=== PATIENT | male | born 1970 | race Caucasian/White ===

== ENCOUNTER 2017-09-03 09:00 | Outpatient (RCR) | payer OTHER ==
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
[~2017-09-03 09:00] MED LIST: ACET500T68 PO; ALB18R INH; ALBU1.257 IH; ALBU8.5H IH; ALBU8.5H12 IH; AZIT-17 PO; BUDE10.2 INH; CEFU500T50 PO; CETI-176 PO; CHL12L MM; CODE118S5 PO; CYCL10TA29 PO; DULO30CA35 PO; DULO60CA56 PO; FLUT1DIS28 INH; GABA-503 PO; GABA-549 PO; IBUP-56 PO; IPRA3AMP21 IH; KET10 PO; LOR5/325 PO; OXYC10TA67 PO; PRED-1 PO; PRED20TA6 PO; ROBC PO; [UNRECOGNIZED DRUG - CODE] PO
[2017-09-03] MEDS ORDERED: OXYC10TA67 PO (11:45)
== END 2017-09-04 ==
LOC: PT 09:00
PROVIDERS: ATTEND Internal Medicine
DX: T54.91XA Toxic effect of unspecified corrosive substance, accidental (unintentional), initial encounter (principal); T24.7 Corrosion of third degree of lower limb, except ankle and foot; R26.89 Other abnormalities of gait and mobility; T31.20 Burns involving 20-29% of body surface with 0% to 9% third degree burns; Y92.63 Factory as the place of occurrence of the external cause
CPT/HCPCS: 97162; 97165

== ENCOUNTER 2017-09-03 09:39 | Emergency (ER) | payer OTHER ==
[~2017-09-03] VITALS: Ht 180.3 cm; Wt 129.3 kg
[2017-09-03] MEDS ORDERED: ONDANSETRON 4 MG/2 ML VIAL IVP ONE (10:00)
[2017-09-03] MEDS ORDERED: NS(*) 0.9% 1000 ML BAG 1,000 ML IV ONE (10:00)
[2017-09-03] MEDS ORDERED: HYDROmorphone(ER ONLY) 1 MG/ML IVP ONE (10:00)
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
[2017-09-03 10:17] LABS: PLATELET COUNT, AUTOMATED 245 K/uL (150-450)
[2017-09-03 11:00] VITALS: BP 140/100
[2017-09-03] MEDS ORDERED: OXYC10TA67 PO (11:45)
== END 2017-09-03 11:24 | disposition home or self-care (01) ==
LOC: ER 09:46
DX: M79.605 Pain in left leg (principal); M79.604 Pain in right leg
CPT/HCPCS: 85025; 86140; 96361; 96374; 96375; 99284; J1170; J2405; J7030

== ENCOUNTER 2017-12-01 09:00 | Outpatient (RCR) | payer OTHER ==
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
--- NOTE | 2017-11-04 16:41 | PT PLAN OF CARE ---
Physician: Prasanth Lewis MD Patient is being seen: 2x/week Therapist:Benjamin Estrada, PT, DPT Medical Diagnosis: Third degree mancilla with skin grafting Treatment Diagnosis: same, altered gait Date of Onset: 04/14/17 Date of Initial Evaluation: 06/06/17 Date patient was last seen: 11/03/17 Number of treatments: 36 Number of cancellations/No shows: 5 INTERVENTIONS: Manual Therapy/STM/MET Strengthening/condition Range of Motion Work Hardening/Cond Stretching Neuromuscular Re-ed Closed Chain Program Posture/Body mechanics Gait Trg/Balance Trg Home Exercise Program Therapeutic Activities GOALS: 6 weeks: Pt will be able to improve PROM-AROM of B knee extension and flexion from baseline to 0-125 degrees to improve function and QOL. MET 6 weeks: Pt will be able to improve PROM-AROM of B ankle DF from baseline to - 12 degrees to improve function and QOL. MET 12 weeks: Pt will be able to improve gait mechanics from baseline to normal gait mechanics to improve function and QOL. MET 15 weeks: Pt will demonstrate improved B LE strength especially in quads, hamstrings, gastroc/soleus, and anterior tib from baseline to greater than 4+/ 5 to improve function and QOL. Progressing PATIENT'S GOAL: improve ROM and strength along with gait mechanics Status of Patient's Goals: Progressing Patient Compliance: Good Prognosis: Good Reasons for continuing therapy: This is a progress note for Taj Shelton. He reports that he continues to have his 7-9/10 pain. He continues to be frustrated with the way they are handling his medication situation and would like his nerve pain down to the 5/10 that it used to be before "everyone" started to mess with his medications to make it better, however, he reports that the situation has gotten much worse and he is getting sick and tired of how high his pain levels continues to maintain. Furthermore, he reports that he cannot sleep due to the high amounts of pain and when he does sleep he is woken up with his nightmares. Furthermore, he continues to have decreased healing on the posterior capsule of his R knee that will not heal. It appears that the tissue has developed multiple layers of scar tissue with a continued open wound with yellow slough over the wounds. He also reports that he is trying everything to get these wounds healed as fast as he can to reduce his risk of infection. Lastly, he has demonstrated the following improvements: improved and maintained AROM of B knee motions into extension and flexion, improved gait mechanics, improved quad contractions, improved hip and ankle mobility and strength, and improved core contraction, however, he continues to demonstrate increased pain in dependent positions and increased pain with desensitization techniques. We will continue to improve as he tolerates. ROM: B hip flexion, extension, abduction, adduction, IR, ER: AROM: WNL's. R knee flexion: 130 degrees, L knee flexion: 130 degrees. R knee extension: 0. L knee extension: 0. B ankle PF: 60 deg. R ankle DF: -12, L ankle DF: -12. Strength: B hip flexion, abduction, extension, adduction: 4/5 with no pain.did not test B knees. Mobility: Independent If you have any questions, please contact me at [phone]. Thank you, Benjamin Estrada, PT, DPT HALLED
[~2017-12-01 09:00] MED LIST changes: +PREG100C44 PO
[2017-12-02] MEDS ORDERED: GABA-503 PO (09:03)
[2017-12-02] MEDS ORDERED: PREG50CA48 PO (09:03)
[2017-12-02] MEDS ORDERED: DULO60CA56 PO (09:10)
[2017-12-02] MEDS ORDERED: LISI-362 PO (09:10)
[2017-12-08] MEDS ORDERED: LISI-362 PO (15:10)
== END 2017-12-07 ==
LOC: PT 09:00
PROVIDERS: ATTEND Internal Medicine
DX: T54.91XA Toxic effect of unspecified corrosive substance, accidental (unintentional), initial encounter (principal); T24.7 Corrosion of third degree of lower limb, except ankle and foot; R26.89 Other abnormalities of gait and mobility; T31.20 Burns involving 20-29% of body surface with 0% to 9% third degree burns; Y92.63 Factory as the place of occurrence of the external cause

== ENCOUNTER → 2018-01-06 | Outpatient (CLI) | payer OTHER ==
[~2018-01-06] MED LIST changes: +CLON-327 PO; +LISI-362 PO; +PREG50CA48 PO
[2018-01-06 08:41] LABS: PLATELET COUNT, AUTOMATED 219 K/uL (150-450)
[2018-01-06 09:31] LABS: LDL CHOLESTEROL 145 mg/dl
== END ==
LOC: LAB 08:20
PROVIDERS: ATTEND Internal Medicine
DX: J45.909 Unspecified asthma, uncomplicated (principal); G89.29 Other chronic pain; T54.3X1A Toxic effect of corrosive alkalis and alkali-like substances, accidental (unintentional), initial encounter
CPT/HCPCS: 36415; 81001; 82040; 82247; 82310; 82374; 82435; 82465; 82565; 82947; 83718; 84075; 84132; 84155; 84295; 84443; 84450; 84460; 84478; 84520; 85025

== ENCOUNTER 2018-03-06 08:15 | Outpatient (RCR) | payer OTHER ==
--- NOTE | 2017-12-15 14:17 | PT PLAN OF CARE ---
Physician: Prasanth Lewis MD Patient is being seen: 2x/week Therapist: Benjamin Estrada, PT, DPT Medical Diagnosis: Third degree mancilla with skin grafting Treatment Diagnosis: same, altered gait Date of Onset: 04/14/17 Date of Initial Evaluation: 06/06/17 Date patient was last seen: 12/15/17 Number of treatments: 43 Number of cancellations/No shows: 5 INTERVENTIONS: Manual Therapy/STM/MET Strengthening/condition Range of Motion Work Hardening/Cond Stretching Neuromuscular Re-ed Closed Chain Program Posture/Body mechanics Gait Trg/Balance Trg Home Exercise Program Therapeutic Activities GOALS: 6 weeks: Pt will be able to improve PROM-AROM of B knee extension and flexion from baseline to 0-125 degrees to improve function and QOL. MET 6 weeks: Pt will be able to improve PROM-AROM of B ankle DF from baseline to - 12 degrees to improve function and QOL. MET 12 weeks: Pt will be able to improve gait mechanics from baseline to normal gait mechanics to improve function and QOL. MET 15 weeks: Pt will demonstrate improved B LE strength especially in quads, hamstrings, gastroc/soleus, and anterior tib from baseline to greater than 4+/ 5 to improve function and QOL. Progressing well PATIENT'S GOAL: improve ROM and strength along with gait mechanics Status of Patient's Goals: Progressing well Patient Compliance: Good Prognosis: Good Reasons for continuing therapy: This is a progress note for Taj Shelton. He reports that he overdid it yesterday during a birthday republican with too much walking and standing and did not have a place to elevate his B LE's to reduce his B LE's pain. He reports that he has a strong 6/10 pain. He reports that he has improved with going up and down stairs and feels like his B LE's are getting stronger. He reports that he still struggles with going down stairs along with static standing or static sitting in a dependent position. He reports that he continues to perform his home exercise program with good results. He reports that he feels like he is improving and would like to continue with PT. He demonstrated improvements with B knee extension and flexion AROM, increased B LE strength, increased gait mechanics, and increased endurance; however, he continues to have struggle with BP control. Furthermore, he reports that he is working with his primary physician to control his BP via medication. Lastly, we would like to continue PT to improve eccentric strength to improve going down stairs. ROM: B hip flexion, extension, abduction, adduction, IR, ER: AROM: WNL's. R knee flexion: 133 degrees, L knee flexion: 135 degrees. R knee extension: 0. L knee extension: 0. B ankle PF: 60 deg. R ankle DF: -12, L ankle DF: -12. Strength: B hip flexion, abduction, extension, adduction: 4/5 with no pain.did not test B knees. Mobility: Independent If you have any questions, please contact me at [phone]. Thank you, Benjamin Estrada, PT, DPT MTDD
--- NOTE | 2018-01-23 17:45 | PT PLAN OF CARE ---
Physician: Prasanth Lewis MD Patient is being seen: 2-3x/week Therapist: Benjamin Estrada, PT, DPT Medical Diagnosis: Third degree mancilla with skin grafting Treatment Diagnosis: same, altered gait Date of Onset: 04/14/17 Date of Initial Evaluation: 06/06/17 Date patient was last seen: 01/23/18 Number of treatments: 53 Number of cancellations/No shows: 6 INTERVENTIONS: Manual Therapy/STM/MET Strengthening/condition Range of Motion Work Hardening/Cond Stretching Neuromuscular Re-ed Closed Chain Program Posture/Body mechanics Gait Trg/Balance Trg Home Exercise Program Therapeutic Activities GOALS: 6 weeks: Pt will be able to improve PROM-AROM of B knee extension and flexion from baseline to 0-125 degrees to improve function and QOL. MET 6 weeks: Pt will be able to improve PROM-AROM of B ankle DF from baseline to - 12 degrees to improve function and QOL. MET 12 weeks: Pt will be able to improve gait mechanics from baseline to normal gait mechanics to improve function and QOL. MET 15 weeks: Pt will demonstrate improved B LE strength especially in quads, hamstrings, gastroc/soleus, and anterior tib from baseline to greater than 4+/ 5 to improve function and QOL. Progressing well PATIENT'S GOAL: improve ROM and strength along with gait mechanics Status of Patient's Goals: Progressing well Patient Compliance: Good Prognosis: Good Reasons for continuing therapy: This is a progress note for Taj Shelton. He reports that his pain and his blood pressure to continue to climb from his normal level of 5/10 to 7/10 and higher. He reports that they are going to try new medication to see if that we relieve some of his pain. His initial blood pressure was 146/102 and his HR was 86 bpm. Due to high level of pain and BP, we worked on his B LE PROM-AROM of his B knee extension and flexion in a supine position to reduce his BP and pain level following the endurance based exercise. By the end of the session, his BP reduced significantly (132/90 and HR of 78 bpm) and then he reduced his pain level from 8-9/10 to his prior level of 7/10. On prior sessions, he demonstrates a 1 to 1.5 ratio to exercise versus time to return to prior pain level, which is significantly improved; however, we would like to improve that ratio to a 1 to 1 ratio. Overall, he demonstrates improvements with gait mechanics, increased B LE strength, able to maintain AROM , and improved endurance. Lastly, we would like to continue PT to improve eccentric strength to improve going down stairs. ROM: B hip flexion, extension, abduction, adduction, IR, ER: AROM: WNL's. R knee flexion: 133 degrees, L knee flexion: 135 degrees. R knee extension: 0. L knee extension: 0. B ankle PF: 60 deg. R ankle DF: -12, L ankle DF: -12. Strength: B hip flexion, abduction, extension, adduction: 4/5 with no pain.did not test B knees. Mobility: Independent If you have any questions, please contact me at [phone]. Thank you, Benjamin Estrada, PT, DPT MTDD
[~2018-03-06 08:15] MED LIST changes: +AMIT-108 PO; +CLON-329 PO; +IBUP800T37 PO; +LISI20TA29 PO
== END 2018-03-08 ==
LOC: PT 08:15
PROVIDERS: ATTEND Internal Medicine
DX: T54.91XA Toxic effect of unspecified corrosive substance, accidental (unintentional), initial encounter (principal); T24.7 Corrosion of third degree of lower limb, except ankle and foot; R26.89 Other abnormalities of gait and mobility; T31.20 Burns involving 20-29% of body surface with 0% to 9% third degree burns; Y92.63 Factory as the place of occurrence of the external cause

== ENCOUNTER → 2018-06-01 | Outpatient (CLI) | payer OTHER ==
[~2018-06-01] MED LIST changes: +AMIT150T21 PO; +ATOR20TA65 PO; +IPRA3AMP10 IH; -IPRA3AMP21 IH; +METO25TA23 PO; +[UNRECOGNIZED DRUG - CODE] PO; -[UNRECOGNIZED DRUG - CODE] PO
[2018-06-01 10:15] LABS: PLATELET COUNT, AUTOMATED 248 K/uL (150-450)
[2018-06-01 10:27] LABS: LDL CHOLESTEROL 159 mg/dl
== END ==
LOC: LAB 09:57
PROVIDERS: ATTEND Internal Medicine
DX: T54.3X1A Toxic effect of corrosive alkalis and alkali-like substances, accidental (unintentional), initial encounter (principal); I10 Essential (primary) hypertension; G89.29 Other chronic pain; E78.5 Hyperlipidemia, unspecified; E66.9 Obesity, unspecified
CPT/HCPCS: 36415; 81001; 82040; 82247; 82310; 82374; 82435; 82465; 82565; 82947; 83718; 84075; 84132; 84155; 84295; 84443; 84450; 84460; 84478; 84520; 84550; 85025

== ENCOUNTER 2018-06-03 09:00 | Outpatient (RCR) | payer OTHER ==
--- NOTE | 2018-03-10 08:40 | PT PLAN OF CARE ---
Physician: Prasanth Lewis MD Patient is being seen: 2-3x/week Therapist: Benjamin Estrada, PT, DPT Medical Diagnosis: Third degree mancilla with skin grafting Treatment Diagnosis: same, altered gait Date of Onset: 04/14/17 Date of Initial Evaluation: 06/06/17 Date patient was last seen: 03/09/18 Number of treatments: 63 Number of cancellations/No shows: 8 INTERVENTIONS: Manual Therapy/STM/MET Strengthening/condition Range of Motion Work Hardening/Cond Stretching Neuromuscular Re-ed Closed Chain Program Posture/Body mechanics Gait Trg/Balance Trg Home Exercise Program Therapeutic Activities GOALS: 6 weeks: Pt will be able to improve PROM-AROM of B knee extension and flexion from baseline to 0-125 degrees to improve function and QOL. NOT MET 6 weeks: Pt will be able to improve PROM-AROM of B ankle DF from baseline to - 12 degrees to improve function and QOL. MET 12 weeks: Pt will be able to improve gait mechanics from baseline to normal gait mechanics to improve function and QOL. MET 15 weeks: Pt will demonstrate improved B LE strength especially in quads, hamstrings, gastroc/soleus, and anterior tib from baseline to greater than 4+/ 5 to improve function and QOL. Progressing well PATIENT'S GOAL: improve ROM and strength along with gait mechanics Status of Patient's Goals: Progressing well Patient Compliance: Good Prognosis: Good Reasons for continuing therapy: This is a progress note for Taj Shelton. He reports this his blood pressure medications along with his antidepressants are starting to work correctly. He states that he is starting to get normal readings at home. Furthermore, he reports that his pain level has stabilized around 6.5/10 and is in much better spirits. His initial blood pressure was 122/ 68 and his HR was 85 bpm. By the end of the session, his BP demonstrated a slight increase in systolic, which is a positive response and it was 126/68 and HR of 87 bpm. Following the session, his pain level remained around the higher end of 6.5/10, which is a significant improvement that we were able to do increased AROM of B knees and increased strengthening in a supine position. From the previous POC, he demonstrated a loss of B knee flexion; however, the last 2-3 weeks we have been working on gaining that range of motion back since if maintained at the current level it would affect with gait and ability to go up and down stairs. His R knee has returned to 118 degrees from 110 degrees and his L knee has returned to 120 degrees from 115 degrees. Lastly, we would like to continue PT to improve eccentric strength to improve going down stairs, increase overall strength, endurance, and return physical activity to improve quality of life. ROM: B hip flexion, extension, abduction, adduction, IR, ER: AROM: WNL's. R knee flexion: 118 degrees, L knee flexion: 120 degrees. R knee extension: 0. L knee extension: 0. B ankle PF: 60 deg. R ankle DF: -12, L ankle DF: -12. Strength: B hip flexion, abduction, extension, adduction: 4/5 with no pain.did not test B knees. Mobility: Independent If you have any questions, please contact me at [phone]. Thank you, Benjamin Estrada, PT, DPT HALLED
--- NOTE | 2018-04-21 15:17 | PT PLAN OF CARE ---
Physician: Prasanth Lewis MD Patient is being seen: 2-3x/week Therapist: Benjamin Estrada, PT, DPT Medical Diagnosis: Third degree mancilla with skin grafting Treatment Diagnosis: same, altered gait Date of Onset: 04/14/17 Date of Initial Evaluation: 06/06/17 Date patient was last seen: 04/20/18 Number of treatments: 73 Number of cancellations/No shows: 16 INTERVENTIONS: Manual Therapy/STM/MET Strengthening/condition Range of Motion Work Hardening/Cond Stretching Neuromuscular Re-ed Closed Chain Program Posture/Body mechanics Gait Trg/Balance Trg Home Exercise Program Therapeutic Activities GOALS: 6 weeks: Pt will be able to improve PROM-AROM of B knee extension and flexion from baseline to 0-125 degrees to improve function and QOL. NOT MET 6 weeks: Pt will be able to improve PROM-AROM of B ankle DF from baseline to - 12 degrees to improve function and QOL. MET 12 weeks: Pt will be able to improve gait mechanics from baseline to normal gait mechanics to improve function and QOL. MET 15 weeks: Pt will demonstrate improved B LE strength especially in quads, hamstrings, gastroc/soleus, and anterior tib from baseline to greater than 4+/ 5 to improve function and QOL. Progressing well PATIENT'S GOAL: improve ROM and strength along with gait mechanics Status of Patient's Goals: Progressing well Patient Compliance: Good Prognosis: Good Reasons for continuing therapy: This is a progress note for Taj Shelton. He reports that his pain continues to be high around the -03/10 resulting in decreased activity and increased weight gain. He reports that he did well with the DASH diet initially, but states that he has fallen back into his bad eating habits resulting in more weight pain. From the previous plan of care, he has made significant gains with his B knee flexion PROM-AROM. His flexion is currently recorded at R knee 130 deg and L knee 128 deg. Furthermore, he is able to tolerate increased resistance in the supine position and we have transitioned him from the B LE's to single LE at a time, which is a significant improvement. He continues to not tolerate upright or standing ther ex. We will continue to increase flexibility, range of motion, and strength as he tolerates. ROM: B hip flexion, extension, abduction, adduction, IR, ER: AROM: WNL's. R knee flexion: 130 degrees, L knee flexion: 128 degrees. R knee extension: 0. L knee extension: 0. B ankle PF: 60 deg. R ankle DF: -12, L ankle DF: -12. Strength: B hip flexion, abduction, extension, adduction: 4/5 to 4+/5 with no pain.did not test B knees. Mobility: Independent If you have any questions, please contact me at [phone]. Thank you, Benjamin Estrada, PT, DPT MTDD
--- NOTE | 2018-06-03 12:03 | PT PLAN OF CARE ---
Physician: Prasanth Lewis MD Patient is being seen: 2-3x/week Therapist: Benjamin Estrada, PT, DPT Medical Diagnosis: Third degree mancilla with skin grafting Treatment Diagnosis: same, altered gait Date of Onset: 04/14/17 Date of Initial Evaluation: 06/06/17 Date patient was last seen: 06/03/18 Number of treatments: 83 Number of cancellations/No shows: 18 INTERVENTIONS: Manual Therapy/STM/MET Strengthening/condition Range of Motion Work Hardening/Cond Stretching Neuromuscular Re-ed Closed Chain Program Posture/Body mechanics Gait Trg/Balance Trg Home Exercise Program Therapeutic Activities GOALS: 6 weeks: Pt will be able to improve PROM-AROM of B knee extension and flexion from baseline to 0-125 degrees to improve function and QOL. NOT MET 6 weeks: Pt will be able to improve PROM-AROM of B ankle DF from baseline to - 12 degrees to improve function and QOL. MET 12 weeks: Pt will be able to improve gait mechanics from baseline to normal gait mechanics to improve function and QOL. MET 15 weeks: Pt will demonstrate improved B LE strength especially in quads, hamstrings, gastroc/soleus, and anterior tib from baseline to greater than 4+/5 to improve function and QOL. Progressing well PATIENT'S GOAL: improve ROM and strength along with gait mechanics Status of Patient's Goals: Progressing well Patient Compliance: Good Prognosis: Good Reasons for continuing therapy: This is a progress note for Taj Shelton. He reports that his MD added a 3rd BP medication and it seems to be working. Pt BP at start of session 106/74 and HR 70, post 10 minutes on NuStep level 10 BP 133/75 HR 79. Reports that he gets slight light headed supine to sit and sit to stand. Right knee ROM 0 to 112* (c/o "ball behind knee"), left knee 0 to 122. From the previous plan of care, he has made significant gains with core and B LE strength. He seems to be tolerating more ther ex; however, he continues to have increased sensitivity but seems to decrease after an hour at home following the session. Furthermore, he is able to tolerate increased resistance in the supine position and we have transitioned him from the B LE's to single LE at a time, which is a significant improvement. We will further improve his balance and functional strength and work his function back to the point he can return to hiking, being outdoors, and potentially going hunting in the future. He continues to not tolerate upright or standing ther ex. We will continue to increase flexibility, range of motion, and strength as he tolerates. ROM: B hip flexion, extension, abduction, adduction, IR, ER: AROM: WNL's. R knee flexion: 112 degrees, L knee flexion: 122 degrees. R knee extension: 0. L knee extension: 0. B ankle PF: 60 deg. R ankle DF: -12, L ankle DF: -12. Strength: B hip flexion, abduction, extension, adduction: 4+/5 to 5/5 with no pain.did not test B knees. Mobility: Independent If you have any questions, please contact me at [phone]. Thank you, Benjamin Estrada, PT, DPT MTDD
== END 2018-06-07 ==
LOC: PT 09:00
PROVIDERS: ATTEND Internal Medicine
DX: T54.91XA Toxic effect of unspecified corrosive substance, accidental (unintentional), initial encounter (principal); T24.7 Corrosion of third degree of lower limb, except ankle and foot; R26.89 Other abnormalities of gait and mobility; T31.20 Burns involving 20-29% of body surface with 0% to 9% third degree burns; Y92.63 Factory as the place of occurrence of the external cause

== ENCOUNTER → 2018-07-29 | Outpatient (CLI) | payer OTHER ==
[~2018-07-29] MED LIST changes: +ATOR40TA69 PO; +CLON0.3T35 PO; +HYDR-2966 PO
[2018-07-29 11:16] LABS: LDL CHOLESTEROL 87 mg/dl
== END ==
LOC: RESP 00:57
PROVIDERS: ATTEND Internal Medicine
DX: I10 Essential (primary) hypertension (principal); E78.5 Hyperlipidemia, unspecified; E66.9 Obesity, unspecified; T54.3X1A Toxic effect of corrosive alkalis and alkali-like substances, accidental (unintentional), initial encounter; G89.29 Other chronic pain
CPT/HCPCS: 36415; 82040; 82247; 82310; 82374; 82435; 82465; 82565; 82947; 83718; 84075; 84132; 84155; 84295; 84450; 84460; 84478; 84520

== ENCOUNTER 2018-09-11 13:45 | Outpatient (RCR) | payer OTHER ==
--- NOTE | 2018-06-16 15:09 | PT PLAN OF CARE ---
Physician: Prasanth Lewis MD Patient is being seen: 1-3x/week Therapist: Benjamin Estrada, PT, DPT Medical Diagnosis: Third degree mancilla with skin grafting Treatment Diagnosis: same, altered gait Date of Onset: 04/14/17 Date of Initial Evaluation: 06/06/17 Date patient was last seen: 06/15/18 Number of treatments: 84 Number of cancellations/No shows: 20 INTERVENTIONS: Manual Therapy/STM/MET Strengthening/condition Range of Motion Work Hardening/Cond Stretching Neuromuscular Re-ed Closed Chain Program Posture/Body mechanics Gait Trg/Balance Trg Home Exercise Program Therapeutic Activities GOALS: 6 weeks: Pt will be able to improve PROM-AROM of B knee extension and flexion from baseline to 0-125 degrees to improve function and QOL. NOT MET 6 weeks: Pt will be able to improve PROM-AROM of B ankle DF from baseline to - 12 degrees to improve function and QOL. MET 12 weeks: Pt will be able to improve gait mechanics from baseline to normal gait mechanics to improve function and QOL. MET 15 weeks: Pt will demonstrate improved B LE strength especially in quads, hamstrings, gastroc/soleus, and anterior tib from baseline to greater than 4+/5 to improve function and QOL. Progressing well PATIENT'S GOAL: improve ROM and strength along with gait mechanics Status of Patient's Goals: Progressing well Patient Compliance: Good Prognosis: Good Reasons for continuing therapy: This is a progress note for Taj Shelton. He reports that his MD added a 3rd BP medication and it seems to be working. Pt BP at start of session 123/84 and HR 70, post 10 minutes on NuStep level 10 BP 132/88 HR 79. He reports that he gets slight light headed supine to sit and sit to stand. Right knee ROM 0 to 115* (c/o "ball behind knee"), left knee 0 to 125. He reports that his pain continues to not be managed well at all (his current pain is 7/10) and he expressed the desire to get rid of all of his pain medications and start over since it is making his more depressed. From the previous plan of care, he has made significant gains with core and B LE strength. He seems to be tolerating more ther ex; however, he continues to have increased sensitivity but seems to decrease after an hour at home following the session. Furthermore, he is able to tolerate increased resistance in the supine position and we have transitioned him from the B LE's to single LE at a time, which is a significant improvement. We will further improve his balance and functional strength and work his function back to the point he can return to hiking, being outdoors, and potentially going hunting in the future. He continues to not tolerate upright or standing ther ex. We will continue to increase flexibility, range of motion, and strength as he tolerates. ROM: B hip flexion, extension, abduction, adduction, IR, ER: AROM: WNL's. R knee flexion: 112 degrees, L knee flexion: 122 degrees. R knee extension: 0. L knee extension: 0. B ankle PF: 60 deg. R ankle DF: -12, L ankle DF: -12. Strength: B hip flexion, abduction, extension, adduction: 4+/5 to 5/5 with no pain.did not test B knees. Mobility: Independent If you have any questions, please contact me at [phone]. Thank you, Benjamin Estrada, PT, DPT A[place]
--- NOTE | 2018-08-04 16:30 | PT PLAN OF CARE ---
Physician: Prasanth Lewis MD Patient is being seen: 2x/week Therapist: Benjamin Estrada, PT, DPT Medical Diagnosis: Third degree mancilla with skin grafting Treatment Diagnosis: same, altered gait Date of Onset: 04/14/17 Date of Initial Evaluation: 06/06/17 Date patient was last seen: 08/03/18 Number of treatments: 94 Number of cancellations/No shows: 27 INTERVENTIONS: Manual Therapy/STM/MET Strengthening/condition Range of Motion Work Hardening/Cond Stretching Neuromuscular Re-ed Closed Chain Program Posture/Body mechanics Gait Trg/Balance Trg Home Exercise Program Therapeutic Activities GOALS: 6 weeks: Pt will be able to improve PROM-AROM of B knee extension and flexion from baseline to 0-125 degrees to improve function and QOL. NOT MET 6 weeks: Pt will be able to improve PROM-AROM of B ankle DF from baseline to - 12 degrees to improve function and QOL. MET 12 weeks: Pt will be able to improve gait mechanics from baseline to normal gait mechanics to improve function and QOL. MET 15 weeks: Pt will demonstrate improved B LE strength especially in quads, hamstrings, gastroc/soleus, and anterior tib from baseline to greater than 4+/5 to improve function and QOL. Progressing well PATIENT'S GOAL: improve ROM and strength along with gait mechanics Status of Patient's Goals: Progressing well Patient Compliance: Good Prognosis: Good Reasons for continuing therapy: This is a progress note for Taj Shelton. His blood pressure continues to be on a roller coaster. At times, the blood pressure is doing well and then at other times the blood pressure is off the charts. However, his pain continues to be maintained at 7/10. Furthermore, he reports that he will be changing his pain specialist on August 07. In addition to changing his pain specialist, he will be seeing a plastic surgeon for laser treatments to treat the scar tissue on the B LE's and most specifically on the R posterior capsule of the knee. Right knee ROM 0 to 110* (c/o "ball behind knee"), left knee 0 to 120. However, he reports that as he was getting into his truck yesterday he slipped and caught himself before completely falling on the ice. Reports extreme pain in bilateral knee's he had to go home and ice. As a result, his L knee ROM went from 0 to 120 degrees to 0-105 degrees and his R knee ROM went from 0-110 degrees to 0-95 degrees. From the previous plan of care, he has made minimal gains with core and B LE strength due to having inconsistently with PT and with inconsistent BP. He seems to be tolerating more ther ex; however, he continues to have increased sensitivity but seems to decrease after an hour at home following the session. Furthermore, he is able to tolerate increased resistance in the supine position and we have transitioned him from the B LE's to single LE at a time, which is a significant improvement. We will further improve his balance and functional strength and work his function back to the point he can return to hiking, being outdoors, and potentially going hunting in the future. He has started to tolerate minimal upright/standing ther ex. We will continue to increase flexibility, range of motion, and strength as he tolerates. We will also continue to address his gait mechanics, but tends to have abnormal gait mechanics due to increased pain and hypersensitivity. ROM: B hip flexion, extension, abduction, adduction, IR, ER: AROM: WNL's. R knee flexion: 110 degrees, L knee flexion: 120 degrees. R knee extension: 0. L knee extension: 0. B ankle PF: 60 deg. R ankle DF: -12, L ankle DF: -12. Strength: B hip flexion, abduction, extension, adduction: 4+/5 to 5/5 with no pain.did not test B knees. Mobility: Independent If you have any questions, please contact me at [phone]. Thank you, Benjamin Estrada, PT, DPT A[facility]
[~2018-09-11 13:45] MED LIST changes: -GABA-503 PO; +GABA-533 PO
== END 2018-09-13 ==
LOC: PT 13:45
PROVIDERS: ATTEND Internal Medicine
DX: T54.91XA Toxic effect of unspecified corrosive substance, accidental (unintentional), initial encounter (principal); T24.7 Corrosion of third degree of lower limb, except ankle and foot; R26.89 Other abnormalities of gait and mobility; T31.20 Burns involving 20-29% of body surface with 0% to 9% third degree burns; Y92.63 Factory as the place of occurrence of the external cause

== ENCOUNTER 2018-10-28 13:00 | Outpatient (RCR) | payer OTHER ==
--- NOTE | 2018-09-16 16:22 | PT PLAN OF CARE ---
Physician: Prasanth Lewis MD Patient is being seen: [g OPPT.PTF] Therapist: Benjamin Estrada, PT, DPT Medical Diagnosis: Third degree mancilla with skin grafting Treatment Diagnosis: same, altered gait Date of Onset: 04/14/17 Date of Initial Evaluation: 06/06/17 Date patient was last seen: 09/16/18 Number of treatments: 102 Number of cancellations/No shows: 30 INTERVENTIONS: Manual Therapy/STM/MET Strengthening/condition Range of Motion Work Hardening/Cond Stretching Neuromuscular Re-ed Closed Chain Program Posture/Body mechanics Gait Trg/Balance Trg Home Exercise Program Therapeutic Activities GOALS: 6 weeks: Pt will be able to improve PROM-AROM of B knee extension and flexion from baseline to 0-125 degrees to improve function and QOL. NOT MET 6 weeks: Pt will be able to improve PROM-AROM of B ankle DF from baseline to - 12 degrees to improve function and QOL. MET 12 weeks: Pt will be able to improve gait mechanics from baseline to normal gait mechanics to improve function and QOL. MET 15 weeks: Pt will demonstrate improved B LE strength especially in quads, hamstrings, gastroc/soleus, and anterior tib from baseline to greater than 4+/5 to improve function and QOL. Progressing well PATIENT'S GOAL: improve ROM and strength along with gait mechanics Status of Patient's Goals: Progressing well Patient Compliance: Good Prognosis: Good Reasons for continuing therapy: This is a progress note for Taj Shelton. He reports that he received his laser treatment on the posterior R knee capsule and states that the pain and the range of motion is getting better each day. He reports that he feels like the laser treatment was painful but now he can touch the skin without any pain, which he reports that he feels like the painful laser treatment sessions will be worth it in the end. Furthermore, he reports that he will have another session next month. He feels optimistic that the laser treatment will do everything that they have talked about to reduce pain, increase motion, increase strength so that he can return to hunting. He demonstrates significant improvement in R knee AROM from 0-90 degrees to 0-116 degrees and his L knee AROM continues to maintain 0-120 degrees. He demonstrates increased R knee extension and flexion with gait mechanics, which has resulted in decreased lateral trunk movement. Furthermore, we will continue to improve B knee AROM as he tolerates, increase strength as he tolerates, and increase endurance as he tolerates during the laser sessions so that he can one day return to hiking and [place]. ROM: B hip flexion, extension, abduction, adduction, IR, ER: AROM: WNL's. R knee flexion: 116 degrees, L knee flexion: 120 degrees. R knee extension: 0. L knee extension: 0. B ankle PF: 60 deg. R ankle DF: -12, L ankle DF: -12. Strength: B hip flexion, abduction, extension, adduction: 4+/5 to 5/5 with no pain.did not test B knees. Mobility: Independent If you have any questions, please contact me at [phone]. Thank you, Benjamin Estrada, PT, DPT [facility]
[~2018-10-28 13:00] MED LIST changes: +SIMV-54 PO
--- NOTE | 2018-11-17 09:36 | PT PLAN OF CARE ---
Physician: Prasanth Lewis MD Patient is being seen: 2x/week Therapist: Benjamin Estrada, PT, DPT Medical Diagnosis: Third degree mancilla with skin grafting Treatment Diagnosis: same, altered gait Date of Onset: 04/14/17 Date of Initial Evaluation: 06/06/17 Date patient was last seen: 11/09/18 Number of treatments: 109 Number of cancellations/No shows: 36 INTERVENTIONS: Manual Therapy/STM/MET Strengthening/condition Range of Motion Work Hardening/Cond Stretching Neuromuscular Re-ed Closed Chain Program Posture/Body mechanics Gait Trg/Balance Trg Home Exercise Program Therapeutic Activities GOALS: 6 weeks: Pt will be able to improve PROM-AROM of B knee extension and flexion from baseline to 0-125 degrees to improve function and QOL. 6 weeks: Pt will be able to improve PROM-AROM of B ankle DF from baseline to - 12 degrees to improve function and QOL. 12 weeks: Pt will be able to improve gait mechanics from baseline to normal gait mechanics to improve function and QOL. 15 weeks: Pt will demonstrate improved B LE strength especially in quads, hamstrings, gastroc/soleus, and anterior tib from baseline to greater than 4+/5 to improve function and QOL. PATIENT'S GOAL: improve ROM and strength along with gait mechanics Status of Patient's Goals: Unknown Patient Compliance: Good Prognosis: Good Reasons for continuing therapy: This is a discharge note for Taj Shelton. This is what he looked like on our last contact: He reports that the last week was extremely painful resulting in tears and severe pain mainly on his R LE especially behind the knee. He reports that the sores behind the R knee are painful with flexion and extension along with walking. He reports that he met with a surgeon in [place] that recommended a surgical procedure to reopen around the wound, place synthetic material, and then a graft over the R knee to ensure that the skin will be flat resulting in healed tissue. Otherwise, he reports that the wound will continue to open and close with time and will eventually require this surgical intervention anyway. He reports that he feel like he is starting over with his R LE and rates his pain to be 8/10. He reports that all last week he could not move and curled up in a ball resulting in many tears. He demonstrated significant reduction of R knee extension and flexion with opened wounds on his R posterior capsule region. Today, he demonstrated a huge regression from where he was 1-2 months ago to today as he no longer tolerated stretching past 70 degrees of flexion and extension past +3 degrees. Furthermore, he did not tolerate any strengthening on his R LE, which is a huge regression as well. From my perspective, he has decreased function, ROM, and strength since the laser treatment started; however, he has decreased hypersensitivity in those areas, which is the only positive that is resulting from laser treatments. Furthermore, he will be discharged from PT due to recent surgical intervention. ROM: B hip flexion, extension, abduction, adduction, IR, ER: AROM: WNL's. R knee flexion: 88 degrees, L knee flexion: 85 degrees. R knee extension: 5 degrees from 0. L knee extension: 8 degrees from 0. B ankle PF: 60 deg. R ankle DF: -5, L ankle DF: -10. Strength: B hip flexion, abduction, extension, adduction: 4/5 with no pain...did not test B knees or ankles due to increased pain with PROM-AROM. Mobility: Independent If you have any questions, please contact me at [phone]. Thank you, Benjamin Estrada, PT, DPT MTDD
== END 2018-10-28 18:00 | disposition home or self-care (01) ==
LOC: PT 13:00
PROVIDERS: ATTEND Internal Medicine
DX: T54.91XS Toxic effect of unspecified corrosive substance, accidental (unintentional), sequela (principal); T24.7 Corrosion of third degree of lower limb, except ankle and foot; R26.89 Other abnormalities of gait and mobility; T31.20 Burns involving 20-29% of body surface with 0% to 9% third degree burns; Y92.63 Factory as the place of occurrence of the external cause

== ENCOUNTER → 2019-03-19 | Outpatient (CLI) | payer OTHER ==
[2019-03-19 13:08] LABS: PLATELET COUNT, AUTOMATED 260 K/uL (150-450)
[2019-03-19 13:33] LABS: LDL CHOLESTEROL 102 mg/dl
== END ==
LOC: LAB 12:56
PROVIDERS: ATTEND Internal Medicine
DX: G47.34 Idiopathic sleep related nonobstructive alveolar hypoventilation (principal); E66.9 Obesity, unspecified; E78.5 Hyperlipidemia, unspecified; I10 Essential (primary) hypertension; G89.29 Other chronic pain; T54.3X1A Toxic effect of corrosive alkalis and alkali-like substances, accidental (unintentional), initial encounter
CPT/HCPCS: 36415; 81001; 82040; 82247; 82310; 82374; 82435; 82465; 82565; 82947; 83718; 84075; 84132; 84155; 84295; 84443; 84450; 84460; 84478; 84520; 85025